=== PATIENT | male | born 1985 | race Caucasian/White ===

== ENCOUNTER → 2017-05-28 | Emergency (ER) | payer OTHER ==
[~2017-05-28] VITALS: Ht 165.1 cm; Wt 83.0 kg
[~2017-05-28] MED LIST: DESPEC DM SYRU473 ML PO; LEVAQUIN250 MG/10 PO
== END | disposition home or self-care (01) ==
LOC: ER 20:43
DX: E13.40 Other specified diabetes mellitus with diabetic neuropathy, unspecified (principal); L13.0 Dermatitis herpetiformis

== ENCOUNTER 2023-11-19 09:51 | Emergency (ER) | payer OTHER ==
[~2023-11-19] VITALS: Ht 162.6 cm; Wt 86.2 kg
[2023-11-19] MEDS ORDERED: METFORMIN HCL500 M3 (10:45)
[2023-11-19 11:52] LABS: HEMATOCRIT 40.8 % (39.0-48.0); HEMOGLOBIN 14.3 g/dL (13-16.00); MEAN CELL VOLUME 82.2 fL (80.0-100.00); MEAN CORPUSCULAR HEMOGLOBIN 28.7 pg (27.00-32.0); PLATELET COUNT 244 K/uL (150-450); RED BLOOD COUNT 4.96 M/uL (4.00-6.00); RED CELL DISTRIBUTION WIDTH 13.5 % (11.5-14.5)
[2023-11-19 12:15] LABS: CALCIUM 9.6 mg/dL (8.5-10.1); CREATININE SERUM 1.08 mg/dL (0.70-1.30); GFR 76.12; POTASSIUM 4.53 mEq/L (3.5-5.1)
[2023-11-19 13:20] LABS: PH,URINE 5.5 (5.0-8.0); URINE APPEARANCE Clear; URINE BILIRRUBIN Negative (NEGATIVE); URINE BLOOD Trace; URINE COLOR Dark Yellow; URINE GLUCOSE Negative (NEGATIVE); URINE KETONE 15 (NEGATIVE); URINE LEUKOCYTE Small; URINE NITRATE Positive
[2023-11-19 13:22] LABS: URINE BACTERIA 5677.2 uL (0.0-1933); URINE CAST 2.29 uL (0.0-1.40); URINE EPITHELIAL CELLS 48.6 uL (0.0-38.8); URINE RBC 12.5 uL (0.0-20.8); URINE WBC 133.1 uL (0.0-23.2)
[2023-11-19 13:42] LABS: URINE MUCUS MODERATE; URINE PROTEIN 300 (NEGATIVE)
== END 2023-11-19 14:21 | disposition home or self-care (01) ==
LOC: ER 09:53
PROVIDERS: General Practice
DX: N39.0 Urinary tract infection, site not specified (principal); I10 Essential (primary) hypertension; E11.9 Type 2 diabetes mellitus without complications; Z79.84 Long term (current) use of oral hypoglycemic drugs